=== PATIENT | female | born 1990 ===

== ENCOUNTER 2021-08-14 14:55 | Outpatient (CLI) | payer OTHER | END 2021-08-14 16:00 | disposition home or self-care (01) | LOC: PRENATAL 14:55 | PROVIDERS: ATTEND Obstetrics & Gynecology Maternal & Fetal Medicine | DX: O35.0XX1 Maternal care for (suspected) central nervous system malformation in fetus, fetus 1 (principal); O35.3XX1 Maternal care for (suspected) damage to fetus from viral disease in mother, fetus 1; O98.512 Other viral diseases complicating pregnancy, second trimester; Z36.89 Encounter for other specified antenatal screening; Z3A.20 20 weeks gestation of pregnancy ==

== ENCOUNTER 2021-11-06 09:32 | Outpatient (CLI) | payer OTHER | END 2021-11-06 10:32 | disposition home or self-care (01) | LOC: PRENATAL 09:32 | PROVIDERS: ATTEND Obstetrics & Gynecology Maternal & Fetal Medicine | DX: O26.849 Uterine size-date discrepancy, unspecified trimester (principal); O02.89 Other abnormal products of conception; O34.219 Maternal care for unspecified type scar from previous cesarean delivery ==